=== PATIENT | male | born 1995 | race Two or more races ===

== ENCOUNTER → 2024-07-24 | Outpatient (BNVA) | payer BC, SELFPAY | END | disposition home or self-care (01) | PROVIDERS: PCP Physician Assistant; Referring Provider Physician Assistant; Visit Provider Urology | DX: Z30.2 Encounter for sterilization (principal); N40.0 Benign prostatic hyperplasia without lower urinary tract symptoms; E66.01 Morbid (severe) obesity due to excess calories; Z68.41 Body mass index [BMI] 40.0-44.9, adult | CPT/HCPCS: 81003; 99202; G0463 ==

== ENCOUNTER 2024-10-29 06:15 | Day surgery (SDC) | payer BC, SELFPAY ==
[2024-10-28 11:10] VITALS: BMI 43.5
[2024-10-29] VITALS (9 sets, daily range): BP systolic 84–137; BP diastolic 49–79; PULSE 84–109; RESP 13–201; TEMP 36.5–36.7; O2SAT 95–100
[2024-10-29] MEDS: RINGERS LACTATED 1000 ML 1,000 ML 20 ML IV (06:52)
--- NOTE | 2024-10-29 09:40 | SUR.PHASEI ---
0993 patient arrived to recovery resting comfortably in [facility] on oxygen 10L via oxy mask with a nasal airway in place, breathing unlabored, vital signs stable, dressing intact to groin; sutures, gauze, scrotal support, no bleeding noted, report received from Lev ANTHONY/ Chester BELL
--- NOTE | 2024-10-29 09:41 | ESOP_ITS ---
Date of Procedure 10/29/24 Pre Op Diagnosis Elective sterilization, obesity Post Op Diagnosis Same Procedure Bilateral vasectomy Findings Bilateral vas Procedure Description Indication for procedure this is a 29-year-old gentleman who was seen in urology office on consultation he is with 5 children desired bilateral vasectomy procedure and complications were discussed with the patient in great detail informed consent is obtained he understood very well there is no warranty for permanent sterilization. Patient was brought to the operating room in a satisfactory condition after appropriate premedication was put on the operating table in a spine position he was appropriately identified by surgeon and operating room staff site scope and indications of the procedure were reconfirmed with the patient. Next general anesthesia was given uneventfully parts were prepped and draped in a usual sterile fashion. Next the right vas deferens was palpated between 2 fingers and a thumb 2% lidocaine with quarter percent Marcaine was instilled appropriately vertical skin incision was made proper hemostasis was secured. Next the vas deferens was brought into the incision it was from its various fascial coverings between 2 silver clips centimeter of the vas deferens was excised. The lumen of the vas deferens was diathermized with coagulation diathermy distal end of the vas deferens was buried between various fascial layers. Skin was approximated with 3-0 chromic. Similar procedure was repeated on the opposite side. Next this sterile dressings were applied. Pressure bandage was given Patient having tolerated the procedure well and was sent to recovery room in a satisfactory condition to be discharged home with full postoperative instructions were verbally as well as in writing to be followed in urology office in 12 weeks' time. Anesthesia GETA and local Pathology / specimen None Estimated Blood Loss 0.5 Condition Stable Disposition PACU Surgeon Teresa Browne MD Surgical Staff Operation Date: 10/29/24 08:30 Case Staff MEDICAL RECORD TECHNICIAN: Cory Saenz
--- NOTE | 2024-10-29 10:58 | SUR.PHASEII ---
1058 Patient meets discharge criteria from recovery, awake and alert, breathing unlabored, vital signs stable, denies pain, dressing intact; no bleeding noted, drinking water; denies nausea, patient able to dress himself into his clothing, discharge instructions given to patient and patients friend, friend signed discharge instructions. Patient given all his belongings prior to discharge, transported via wheelchair and left in a private vehicle.
== END 2024-10-29 10:58 | disposition home or self-care (01) ==
PROVIDERS: PCP Physician Assistant; Referring Provider Urology; Visit Provider Urology
PROC: (CPT 55250; principal; 2024-10-29 08:30)
DX: Z30.2 Encounter for sterilization (principal); E66.9 Obesity, unspecified; Z68.41 Body mass index [BMI] 40.0-44.9, adult
CPT/HCPCS: 55250; A4217; A4649; J1171; J2250; J2371; J2704; J3010; J3490; J7120; A9270; J1596